=== PATIENT | female | born 1950 | race Caucasian/White ===

== ENCOUNTER → 2016-10-21 | Outpatient (REF) | payer MEDICARE, OTHER ==
[2016-10-21 12:10] LABS: MEAN CORPUSCULAR HGB CONC 32.6 g/dl (32.0-36.5); MEAN CORPUSCULAR VOLUME 88.7 fl (80.0-96.0); RED CELL DISTRIBUTION WIDTH 13.9 % (11.5-14.5); WHITE BLOOD COUNT 4.8 K/mm3 (4.0-10.0)
[2016-10-21 12:35] LABS: ALBUMIN 3.4 GM/DL (3.2-5.2); ALBUMIN/GLOBULIN RATIO 0.92 (1.00-1.93); BILIRUBIN,TOTAL 0.5 MG/DL (0.2-1.0); CALCIUM LEVEL 8.8 MG/DL (8.8-10.2); CREATININE FOR GFR 1.41 MG/DL (0.55-1.02); GLOMERULAR FILTRATION RATE 39.5 (>45); POTASSIUM SERUM 4.3 MEQ/L (3.5-5.1); TOTAL PROTEIN 7.1 GM/DL (6.4-8.2)
== END ==
LOC: M LABDRAW1 11:52
PROVIDERS: ATTEND Nurse Practitioner Family
DX: I10 Essential (primary) hypertension (principal); E78.00 Pure hypercholesterolemia, unspecified; K21.9 Gastro-esophageal reflux disease without esophagitis; E55.9 Vitamin D deficiency, unspecified

== ENCOUNTER → 2017-01-24 | Outpatient (REF) | payer MEDICARE, OTHER ==
[2017-01-24 10:08] LABS: MEAN CORPUSCULAR HEMOGLOBIN 29.9 pg (27.0-33.0); MEAN CORPUSCULAR HGB CONC 33.5 g/dl (32.0-36.5); MEAN CORPUSCULAR VOLUME 89.3 fl (80.0-96.0); RED CELL DISTRIBUTION WIDTH 14.6 % (11.5-14.5); WHITE BLOOD COUNT 6.3 K/mm3 (4.0-10.0)
[2017-01-24 10:36] LABS: ALBUMIN 3.3 GM/DL (3.2-5.2); ALBUMIN/GLOBULIN RATIO 0.85 (1.00-1.93); BILIRUBIN,TOTAL 0.5 MG/DL (0.2-1.0); CALCIUM LEVEL 8.9 MG/DL (8.8-10.2); CREATININE FOR GFR 1.25 MG/DL (0.55-1.02); GLOMERULAR FILTRATION RATE 45.4 (>45); TOTAL PROTEIN 7.2 GM/DL (6.4-8.2)
== END ==
LOC: M LABDRAW1 09:39
PROVIDERS: ATTEND Nurse Practitioner Family
DX: I10 Essential (primary) hypertension (principal); K21.9 Gastro-esophageal reflux disease without esophagitis; E78.00 Pure hypercholesterolemia, unspecified

== ENCOUNTER → 2017-04-26 | Outpatient (REF) | payer MEDICARE, OTHER ==
[2017-04-26 11:24] LABS: MEAN CORPUSCULAR HEMOGLOBIN 27.7 pg (27.0-33.0); MEAN CORPUSCULAR HGB CONC 31.8 g/dl (32.0-36.5); MEAN CORPUSCULAR VOLUME 87.1 fl (80.0-96.0); RED CELL DISTRIBUTION WIDTH 13.8 % (11.5-14.5); WHITE BLOOD COUNT 5.6 K/mm3 (4.0-10.0)
[2017-04-26 11:31] LABS: ALBUMIN 3.3 GM/DL (3.2-5.2); ALBUMIN/GLOBULIN RATIO 0.8 (1.00-1.93); BILIRUBIN,TOTAL 0.5 MG/DL (0.2-1.0); CALCIUM LEVEL 9.1 MG/DL (8.8-10.2); CREATININE FOR GFR 1.53 MG/DL (0.55-1.02); GLOMERULAR FILTRATION RATE 35.9 (>45); POTASSIUM SERUM 4.5 MEQ/L (3.5-5.1); TOTAL PROTEIN 7.4 GM/DL (6.4-8.2)
== END ==
LOC: M LABDRAW1 08:40
PROVIDERS: ATTEND Nurse Practitioner Family
DX: E78.5 Hyperlipidemia, unspecified (principal); I10 Essential (primary) hypertension; E55.9 Vitamin D deficiency, unspecified

== ENCOUNTER → 2017-07-11 | Outpatient (REF) | payer MEDICARE, OTHER ==
[2017-07-11 10:26] LABS: CALCIUM LEVEL 8.8 MG/DL (8.8-10.2); CREATININE FOR GFR 1.2 MG/DL (0.55-1.02); GLOMERULAR FILTRATION RATE 47.4 (>45); POTASSIUM SERUM 3.9 MEQ/L (3.5-5.1)
== END ==
LOC: M LABDRAW1 08:21
PROVIDERS: ATTEND Nurse Practitioner Family
DX: I10 Essential (primary) hypertension (principal)

== ENCOUNTER → 2017-09-30 | Outpatient (REF) | payer MEDICARE, OTHER ==
[2017-09-30 12:38] LABS: HEMATOCRIT 37.9 % (36.0-47.0); HEMOGLOBIN 11.5 g/dl (12.0-16.0); MEAN CORPUSCULAR HEMOGLOBIN 25.4 pg (27.0-33.0); MEAN CORPUSCULAR HGB CONC 30.3 g/dl (32.0-36.5); MEAN CORPUSCULAR VOLUME 83.7 fl (80.0-96.0); PLATELET COUNT, AUTOMATED 184 10^3/uL (150-450); RED BLOOD COUNT 4.53 10^6/uL (4.00-5.40); RED CELL DISTRIBUTION WIDTH 16.7 % (11.5-14.5); WHITE BLOOD COUNT 5.3 10^3/uL (4.0-10.0)
[2017-09-30 12:44] LABS: ALBUMIN 3.1 GM/DL (3.2-5.2); ALBUMIN/GLOBULIN RATIO 0.76 (1.00-1.93); ALKALINE PHOSPHATASE 78 U/L (45-117); ALT/SGPT 16 U/L (12-78); ANION GAP 7 MEQ/L (8-16); AST/SGOT 14 U/L (7-37); BILIRUBIN,TOTAL 0.5 MG/DL (0.2-1.0); BLOOD UREA NITROGEN 35 MG/DL (7-18); CALCIUM LEVEL 9.1 MG/DL (8.8-10.2); CARBON DIOXIDE LEVEL 28 MEQ/L (21-32); CHLORIDE LEVEL 106 MEQ/L (98-107); CHOLESTEROL LEVEL 170 MG/DL (<200); CHOLESTEROL RISK RATIO 3.695 (<5); CPK CREATINE PHOSPHOKINASE 84 U/L (26-192); CREATININE FOR GFR 1.51 MG/DL (0.55-1.30); GLOMERULAR FILTRATION RATE 36.4 (>45); GLUCOSE, FASTING 94 MG/DL (70-100); HDL CHOLESTEROL 46 MG/DL (>40); NON-HDL-C 124 MG/DL; POTASSIUM SERUM 4.4 MEQ/L (3.5-5.1); SODIUM LEVEL 141 MEQ/L (136-145); TOTAL PROTEIN 7.2 GM/DL (6.4-8.2); TRIGLYCERIDES LEVEL 190 MG/DL (<150)
== END ==
LOC: M LABDRAW1 07:58
DX: E78.00 Pure hypercholesterolemia, unspecified (principal); I10 Essential (primary) hypertension
CPT/HCPCS: 82550

== ENCOUNTER → 2017-12-29 | Outpatient (REF) | payer MEDICARE, OTHER ==
[2017-12-29 12:28] LABS: HEMATOCRIT 36.6 % (36.0-47.0); HEMOGLOBIN 11.2 g/dl (12.0-15.5); MEAN CORPUSCULAR HEMOGLOBIN 26.4 pg (27.0-33.0); MEAN CORPUSCULAR HGB CONC 30.6 g/dl (32.0-36.5); MEAN CORPUSCULAR VOLUME 86.3 fl (80.0-96.0); PLATELET COUNT, AUTOMATED 178 10^3/uL (150-450); RED BLOOD COUNT 4.24 10^6/uL (4.00-5.40); RED CELL DISTRIBUTION WIDTH 14.3 % (11.5-14.5); WHITE BLOOD COUNT 5.3 10^3/uL (4.0-10.0)
[2017-12-29 12:58] LABS: ALBUMIN 3.3 GM/DL (3.2-5.2); ALKALINE PHOSPHATASE 69 U/L (45-117); ALT/SGPT 18 U/L (12-78); ANION GAP 6 MEQ/L (8-16); AST/SGOT 15 U/L (7-37); BILIRUBIN,TOTAL 0.5 MG/DL (0.2-1.0); BLOOD UREA NITROGEN 35 MG/DL (7-18); CALCIUM LEVEL 9.2 MG/DL (8.8-10.2); CARBON DIOXIDE LEVEL 29 MEQ/L (21-32); CHLORIDE LEVEL 107 MEQ/L (98-107); CHOLESTEROL LEVEL 178 MG/DL (<200); CHOLESTEROL RISK RATIO 4.045 (<5); CPK CREATINE PHOSPHOKINASE 82 U/L (26-192); GLUCOSE, FASTING 97 MG/DL (70-100); HDL CHOLESTEROL 44 MG/DL (>40); NON-HDL-C 134 MG/DL; POTASSIUM SERUM 4.2 MEQ/L (3.5-5.1); SODIUM LEVEL 142 MEQ/L (136-145); TOTAL PROTEIN 7.4 GM/DL (6.4-8.2); TRIGLYCERIDES LEVEL 195 MG/DL (<150)
== END ==
LOC: M LABDRAW1 11:42
DX: I10 Essential (primary) hypertension (principal); E78.00 Pure hypercholesterolemia, unspecified
CPT/HCPCS: 82550

== ENCOUNTER → 2018-04-05 | Outpatient (REF) | payer MEDICARE, OTHER ==
[2018-04-05 12:55] LABS: HEMATOCRIT 37.7 % (36.0-47.0); HEMOGLOBIN 11.3 g/dl (12.0-15.5); MEAN CORPUSCULAR HEMOGLOBIN 25.2 pg (27.0-33.0); MEAN CORPUSCULAR VOLUME 84.2 fl (80.0-96.0); PLATELET COUNT, AUTOMATED 177 10^3/uL (150-450); RED BLOOD COUNT 4.48 10^6/uL (4.00-5.40); RED CELL DISTRIBUTION WIDTH 15.9 % (11.5-14.5); WHITE BLOOD COUNT 5.2 10^3/uL (4.0-10.0)
[2018-04-05 13:29] LABS: ALBUMIN 3.2 GM/DL (3.2-5.2); ALBUMIN/GLOBULIN RATIO 0.76 (1.00-1.93); ALKALINE PHOSPHATASE 73 U/L (45-117); ALT/SGPT 17 U/L (12-78); ANION GAP 9 MEQ/L (8-16); AST/SGOT 13 U/L (7-37); BILIRUBIN,TOTAL 0.4 MG/DL (0.2-1.0); BLOOD UREA NITROGEN 29 MG/DL (7-18); CALCIUM LEVEL 8.8 MG/DL (8.8-10.2); CARBON DIOXIDE LEVEL 28 MEQ/L (21-32); CHLORIDE LEVEL 105 MEQ/L (98-107); CHOLESTEROL LEVEL 171 MG/DL (<200); CPK CREATINE PHOSPHOKINASE 93 U/L (26-192); CREATININE FOR GFR 1.57 MG/DL (0.55-1.30); GLOMERULAR FILTRATION RATE 34.8 (>45); GLUCOSE, FASTING 101 MG/DL (70-100); HDL CHOLESTEROL 50 MG/DL (>40); LDL CHOLESTEROL 79.4 MG/DL (<100); NON-HDL-C 121 MG/DL; POTASSIUM SERUM 4.1 MEQ/L (3.5-5.1); SODIUM LEVEL 142 MEQ/L (136-145); TOTAL PROTEIN 7.4 GM/DL (6.4-8.2); TRIGLYCERIDES LEVEL 208 MG/DL (<150)
== END ==
LOC: M LABDRAW1 12:07
DX: I10 Essential (primary) hypertension (principal)
CPT/HCPCS: 82550

== ENCOUNTER → 2018-07-13 | Outpatient (REF) | payer MEDICARE, OTHER ==
[2018-07-13 12:50] LABS: HEMATOCRIT 38.3 % (36.0-47.0); HEMOGLOBIN 11.4 g/dl (12.0-15.5); MEAN CORPUSCULAR HEMOGLOBIN 25.5 pg (27.0-33.0); MEAN CORPUSCULAR HGB CONC 29.8 g/dl (32.0-36.5); MEAN CORPUSCULAR VOLUME 85.7 fl (80.0-96.0); PLATELET COUNT, AUTOMATED 188 10^3/uL (150-450); RED BLOOD COUNT 4.47 10^6/uL (4.00-5.40); RED CELL DISTRIBUTION WIDTH 15.3 % (11.5-14.5); WHITE BLOOD COUNT 5.7 10^3/uL (4.0-10.0)
[2018-07-13 13:13] LABS: ALBUMIN 3.2 GM/DL (3.2-5.2); ALKALINE PHOSPHATASE 75 U/L (45-117); ALT/SGPT 16 U/L (12-78); ANION GAP 9 MEQ/L (8-16); AST/SGOT 13 U/L (7-37); BILIRUBIN,TOTAL 0.5 MG/DL (0.2-1.0); BLOOD UREA NITROGEN 29 MG/DL (7-18); CALCIUM LEVEL 8.7 MG/DL (8.8-10.2); CARBON DIOXIDE LEVEL 26 MEQ/L (21-32); CHLORIDE LEVEL 106 MEQ/L (98-107); CHOLESTEROL LEVEL 180 MG/DL (<200); CPK CREATINE PHOSPHOKINASE 69 U/L (26-192); CREATININE FOR GFR 1.54 MG/DL (0.55-1.30); GLOMERULAR FILTRATION RATE 35.5 (>39); GLUCOSE, FASTING 92 MG/DL (70-100); HDL CHOLESTEROL 45 MG/DL (>40); LDL CHOLESTEROL 100 MG/DL (<100); NON-HDL-C 135 MG/DL; POTASSIUM SERUM 4.4 MEQ/L (3.5-5.1); SODIUM LEVEL 141 MEQ/L (136-145); TOTAL 25(OH) VITAMIN D 89.8 NG/ML (30.0-100.0); TOTAL PROTEIN 7.2 GM/DL (6.4-8.2); TRIGLYCERIDES LEVEL 176 MG/DL (<150)
== END ==
LOC: M LABDRAW1 12:03
DX: I10 Essential (primary) hypertension (principal); E78.00 Pure hypercholesterolemia, unspecified; E55.9 Vitamin D deficiency, unspecified
CPT/HCPCS: 82550

== ENCOUNTER → 2018-08-16 | Outpatient (CLI) | payer MEDICARE, OTHER ==
--- NOTE | 2018-08-16 11:04 | REP ---
RIGHT FOOT, FOUR VIEWS: HISTORY: Pain. There is no acute fracture or dislocation. 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 There is narrowing of the 1st metatarsophalangeal joint space. The remaining joint spaces are normal in appearance. An osteophyte is present on the inferior calcaneus. IMPRESSION: Degenerative change, as described above. Electronically Signed by Rajesh Duque MD 08/16/2018 11:06 A
[2018-08-16 12:30] LABS: BASO % 0.3 % (0.0-1.0); EOS # 0.1 10^3/uL (0.0-0.50); EOS % 0.7 % (0.0-3.0); HEMATOCRIT 39.4 % (36.0-47.0); HEMOGLOBIN 11.9 g/dl (12.0-15.5); LYMPH # 2.1 10^3/uL (1.5-4.5); LYMPH % 24.4 % (24.0-44.0); MEAN CORPUSCULAR HEMOGLOBIN 25.5 pg (27.0-33.0); MEAN CORPUSCULAR HGB CONC 30.2 g/dl (32.0-36.5); MEAN CORPUSCULAR VOLUME 84.4 fl (80.0-96.0); MONO # 0.6 10^3/uL (0.0-0.8); MONO % 6.8 % (0.0-5.0); NEUTROPHILS # 5.9 10^3/uL (1.8-7.7); NEUTROPHILS % 67.5 % (36.0-66.0); PLATELET COUNT, AUTOMATED 217 10^3/uL (150-450); RED BLOOD COUNT 4.67 10^6/uL (4.00-5.40); WHITE BLOOD COUNT 8.7 10^3/uL (4.0-10.0)
== END ==
LOC: M WUC 10:30
PROVIDERS: ATTEND Physician Assistant
DX: M25.774 Osteophyte, right foot (principal); M79.671 Pain in right foot

== ENCOUNTER → 2018-09-01 | Outpatient (CLI) | payer MEDICARE, OTHER ==
--- NOTE | 2018-09-01 12:12 | REP ---
RIGHT WRIST, FOUR VIEWS: HISTORY: Pain. There is no acute fracture or dislocation. There is narrowing of the first carpometacarpal joint space with associated osteophyte formation. Small cysts are present in the navicular , lunate and capitate. IMPRESSION: Degenerative change as described above. Electronically Signed by Rajesh Duque MD 09/01/2018 12:13 P
[2018-09-01 17:04] LABS: BASO # 0.1 10^3/uL (0.0-0.2); BASO % 0.5 % (0.0-1.0); EOS % 0.3 % (0.0-3.0); HEMATOCRIT 38.2 % (36.0-47.0); HEMOGLOBIN 11.6 g/dl (12.0-15.5); LYMPH # 2.3 10^3/uL (1.5-4.5); LYMPH % 16.6 % (24.0-44.0); MEAN CORPUSCULAR HEMOGLOBIN 25.2 pg (27.0-33.0); MEAN CORPUSCULAR HGB CONC 30.4 g/dl (32.0-36.5); MEAN CORPUSCULAR VOLUME 82.9 fl (80.0-96.0); MONO # 0.7 10^3/uL (0.0-0.8); MONO % 5.1 % (0.0-5.0); NEUTROPHILS # 10.5 10^3/uL (1.8-7.7); NEUTROPHILS % 77.1 % (36.0-66.0); PLATELET COUNT, AUTOMATED 264 10^3/uL (150-450); RED BLOOD COUNT 4.61 10^6/uL (4.00-5.40); WHITE BLOOD COUNT 13.6 10^3/uL (4.0-10.0)
== END ==
LOC: M WUC 11:25
PROVIDERS: ATTEND Physician Assistant
DX: M25.531 Pain in right wrist (principal)

== ENCOUNTER → 2018-10-13 | Outpatient (REF) | payer MEDICARE, OTHER ==
[2018-10-13 12:14] LABS: CALCIUM LEVEL 8.9 MG/DL (8.8-10.2); CREATININE FOR GFR 1.41 MG/DL (0.55-1.30); GLOMERULAR FILTRATION RATE 39.3 (>39); POTASSIUM SERUM 3.7 MEQ/L (3.5-5.1)
== END ==
LOC: M LABDRAW1 09:33
PROVIDERS: ATTEND Nurse Practitioner Family
DX: I10 Essential (primary) hypertension (principal)

== ENCOUNTER → 2019-01-12 | Outpatient (REF) | payer MEDICARE, OTHER ==
[2019-01-12 13:39] LABS: HEMATOCRIT 35.3 % (36.0-47.0); HEMOGLOBIN 11.2 g/dl (12.0-15.5); MEAN CORPUSCULAR HEMOGLOBIN 26.7 pg (27.0-33.0); MEAN CORPUSCULAR HGB CONC 31.7 g/dl (32.0-36.5); MEAN CORPUSCULAR VOLUME 84.2 fl (80.0-96.0); PLATELET COUNT, AUTOMATED 212 10^3/uL (150-450); RED BLOOD COUNT 4.19 10^6/uL (4.00-5.40); WHITE BLOOD COUNT 5.6 10^3/uL (4.0-10.0)
[2019-01-12 13:47] LABS: ALBUMIN 3.4 GM/DL (3.2-5.2); BILIRUBIN,TOTAL 0.4 MG/DL (0.2-1.0); CALCIUM LEVEL 9.4 MG/DL (8.8-10.2); CHOLESTEROL RISK RATIO 3.471 (<5); CREATININE FOR GFR 1.42 MG/DL (0.55-1.30); GLOMERULAR FILTRATION RATE 38.9 (>39); POTASSIUM SERUM 4.5 MEQ/L (3.5-5.1); TOTAL PROTEIN 6.8 GM/DL (6.4-8.2)
[2019-01-12 14:02] LABS: TOTAL 25(OH) VITAMIN D 78.2 NG/ML (30.0-100.0)
== END ==
LOC: M LABDRAW1 11:57
PROVIDERS: ATTEND Nurse Practitioner Family
DX: I10 Essential (primary) hypertension (principal); E78.5 Hyperlipidemia, unspecified; E55.9 Vitamin D deficiency, unspecified

== ENCOUNTER → 2019-02-21 | Outpatient (REF) | payer MEDICARE, OTHER ==
[~2019-02-21] MED LIST: ATEN25TA PO; ATOR1TAB21 PO; FLUTISP; LISI20TA PO; OYST500T12 PO; PANT40TA3 PO; SERT-138 PO; VITA25TA3 PO; ZYLO300T6 PO
[2019-02-21 15:47] LABS: CALCIUM LEVEL 9.3 MG/DL (8.8-10.2); CREATININE FOR GFR 1.49 MG/DL (0.55-1.30); GLOMERULAR FILTRATION RATE 36.8 (>39); POTASSIUM SERUM 3.9 MEQ/L (3.5-5.1)
[2019-02-21 15:57] LABS: HEMATOCRIT 34.5 % (36.0-47.0); HEMOGLOBIN 10.6 g/dl (12.0-15.5); MEAN CORPUSCULAR HEMOGLOBIN 25.4 pg (27.0-33.0); MEAN CORPUSCULAR HGB CONC 30.7 g/dl (32.0-36.5); MEAN CORPUSCULAR VOLUME 82.5 fl (80.0-96.0); PLATELET COUNT, AUTOMATED 216 10^3/uL (150-450); RED BLOOD COUNT 4.18 10^6/uL (4.00-5.40); WHITE BLOOD COUNT 6.1 10^3/uL (4.0-10.0)
== END ==
LOC: M LABDRAW1 11:54
PROVIDERS: ATTEND Nurse Practitioner Family
DX: I10 Essential (primary) hypertension (principal)

== ENCOUNTER 2019-02-28 09:48 | Day surgery (SDC) | payer MEDICARE, OTHER ==
[~2019-02-28] VITALS: Ht 165.1 cm; Wt 122.4 kg
[~2019-02-28 09:48] MED LIST changes: +ACETAMINOPHEN 325 MG TAB PO PRN; +BSS with VANC/TOB/EPI for EYE CASES IR ONE; +CYCLOPENTOLATE 2% OPHTH SOLN 2ML BTL OD ONE; +HEALON DUET PRO(HEALON 10MG/ML 0.55ML & HEALON ENDOCOAT 30MG/ML 0.85ML) As Ordered ONE; +LIDOCAINE 1% SDV 5 ML VIAL As Ordered ONE; +LIDOCAINE 3.5 % 1ML OPHTH TOPICAL GEL OU ONE; -LISI20TA PO; +LISI20TA19 PO; +MIDAZOLAM INJ 2 MG/2 ML VIAL (J2250) As Ordered ONE; +MOXIFLOXACIN IN BSS 0.25MG/0.25ML INTRACAMERAL INJ (OR EYE ONLY)(J2280) As Ordered ONE; +OFLOXACIN 0.3 % (OCUFLOX) OPTH SOL 5ML OD ONE; +PHENYLEPHRINE 2.5% OPHTH SOL 2ML OD ONE; +PHENYLEPHRINE HCL 10 % OPHTH. SOL 5ML OD PRN; +POVIDONE-IODINE 5% OPHTH PREP SOL 30ML As Ordered ONE; +TRIAMCINOLONE PRES FR 40 MG/ML 1ML(TRIESENCE)(OR EYE ONLY)(J3300 PER 1MG) As Ordered ONE; +TROPICAMIDE 1% OPHTH SOLN 2ML OD ONE
[2019-02-28] MEDS ORDERED: fentaNYL 100 MCG/2 ML INJECTION (J3010) As Ordered ONE (11:16)
[2019-02-28] MEDS ORDERED: ACETYLCHOLINE OPHTH SOLN 1% 2ML (MIOCHOL-E) As Ordered ONE (11:25)
[2019-02-28] MEDS ORDERED: AcetaZOLAMIDE 500 MG ER CAP As Ordered ONE (12:00)
[2019-02-28 12:10] VITALS: BP 125/62
[2019-02-28] MEDS ORDERED: AcetaZOLAMIDE 500 MG ER CAP PO ONE (13:00)
[2019-02-28] MEDS ORDERED: TRIMETHOBENZAMIDE 300 MG CAP PO PRN (13:00)
--- NOTE | 2019-03-02 16:25 | RO ---
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 POSTPROCEDURE DIAGNOSIS: Miosis and cataract right eye. PROCEDURE: Phacoemulsification with intraocular lens implantation with the help of Optiwave Refractive Analysis (ORA) and 7 mm Malyugin ring. Intraocular lens power chosen was AU00T0, 21.5 diopter. SURGEON: Dr. Tara Genao OUTSIDE ENERGY SALES REPRESENTATIVES: None. ANESTHESIA: COMPLICATIONS: None. DESCRIPTION OF PROCEDURE: The patient was brought to the operating room, laid in supine position. The eye was prepped and draped in a sterile fashion for ophthalmic surgery, following which a lid speculum was placed. Sideport incision was made and EndoCoat was injected into the anterior chamber following which Healon was placed into the anterior chamber after the temporal clear corneal incision was made. Capsulorrhexis was done after a Malyugin ring 7 mm was placed to dilate the pupil prior to capsulorrhexis. This was because of miosis. Phacoemulsification was done in a [id number] method within the capsular bag, followed by aspiration of the cortical material. Healon was then placed in the capsular bag, and the anterior chamber intraocular pressure was checked. It was noted to be adequate, following which multiple ORA calculations were reviewed. Intraocular lens power of AU00T0, 21.5 diopter was then chosen and inserted. Excess viscoelastic was removed, the wound was hydrated, intracameral moxifloxacin and sub-Tenon Triamcinolone injections were given, and the patient was returned to the recovery room, after removing the lid speculum, in stable condition.
== END 2019-02-28 12:26 | disposition home or self-care (01) ==
LOC: M SDC 09:48
PROVIDERS: ATTEND Ophthalmology
DX: H25.9 Unspecified age-related cataract (principal); H57.03 Miosis; I10 Essential (primary) hypertension; E78.5 Hyperlipidemia, unspecified; K21.9 Gastro-esophageal reflux disease without esophagitis; F41.9 Anxiety disorder, unspecified; F32.9 Major depressive disorder, single episode, unspecified; Z79.899 Other long term (current) drug therapy
CPT/HCPCS: 66982; 92015; J2250; J2280; J3010; J3300; V2632

== ENCOUNTER 2019-03-07 09:41 | Day surgery (SDC) | payer MEDICARE, OTHER ==
[~2019-03-07] VITALS: Ht 168.9 cm; Wt 121.2 kg
[~2019-03-07 09:41] MED LIST changes: -CYCLOPENTOLATE 2% OPHTH SOLN 2ML BTL OD ONE; +CYCLOPENTOLATE 2% OPHTH SOLN 2ML BTL OS ONE; +LIDOCAINE 1% MDV 20ML VIAL SQ PRN; +LISI20TA PO; -LISI20TA19 PO; -MIDAZOLAM INJ 2 MG/2 ML VIAL (J2250) As Ordered ONE; -OFLOXACIN 0.3 % (OCUFLOX) OPTH SOL 5ML OD ONE; +OFLOXACIN 0.3 % (OCUFLOX) OPTH SOL 5ML OS ONE; -PHENYLEPHRINE 2.5% OPHTH SOL 2ML OD ONE; +PHENYLEPHRINE 2.5% OPHTH SOL 2ML OS ONE; -PHENYLEPHRINE HCL 10 % OPHTH. SOL 5ML OD PRN; +PHENYLEPHRINE HCL 10 % OPHTH. SOL 5ML OS PRN; -TROPICAMIDE 1% OPHTH SOLN 2ML OD ONE; +TROPICAMIDE 1% OPHTH SOLN 2ML OS ONE
[2019-03-07] MEDS ORDERED: MIDAZOLAM INJ 2 MG/2 ML VIAL (J2250) As Ordered ONE (10:46)
[2019-03-07] MEDS ORDERED: fentaNYL 100 MCG/2 ML INJECTION (J3010) As Ordered ONE (10:47)
[2019-03-07] MEDS ORDERED: HEALON DUET PRO(HEALON 10MG/ML 0.55ML & HEALON ENDOCOAT 30MG/ML 0.85ML) As Ordered ONE (11:19)
[2019-03-07] MEDS ORDERED: AcetaZOLAMIDE 500 MG ER CAP PO ONE (11:45)
[2019-03-07] MEDS ORDERED: TRIMETHOBENZAMIDE 300 MG CAP PO PRN (11:45)
[2019-03-07] MEDS ORDERED: ONDANSETRON 4MG/2ML VIAL (J2405) IV PRN (11:45)
[2019-03-07 11:55] VITALS: BP 96/52
--- NOTE | 2019-03-08 12:52 | RO ---
DATE OF PROCEDURE: 03/07/2019 PREPROCEDURE DIAGNOSIS: Cataract of left eye. POSTPROCEDURE DIAGNOSIS: Cataract of left eye. PROCEDURE: Femtosecond laser and phacoemulsification of the intraocular lens with lens implantation with the help of the Optiwave refractory analysis (ORA) left eye. Intraocular lens power used was AU00T0, 21 diopter. SURGEON: Tara Genao MD POUCH MAKING MACHINE OPERATOR: None. ANESTHESIA: Local IV standby. FINDINGS: Cataract of left eye. COMPLICATIONS: None. DESCRIPTION OF PROCEDURE: The patient was brought to the operating room and laid in supine position. A lid speculum was placed, and patient was brought under the femtosecond laser. After the satisfactory placement of the patient interface, primary incision, secondary incision, and arcuate incisions with lens fragmentation was done without any complication per plan. The patients interface was then removed and lid speculum removed. Patient was placed under the microscope. The eye was prepped and draped in a sterile fashion for ophthalmic surgery. Lid speculum was placed. The secondary incision was opened, and EndoCoat was injected into the anterior chamber. The temporal clear corneal incision was then opened and capsulorrhexis removed, followed by hydrodissection. This was followed by phacoemulsification of the lens within the capsular bag. Cortical material was then aspirated, and Healon was injected into the capsular bag. Intraocular lens was then placed. Excess Healon was aspirated. Wound was hydrated. The lid speculum was removed, and patient was returned to the recovery room in stable condition. ADDENDUM: After cortical clean up, Healon was placed in the capsular bag anterior chamber. Intraocular pressure was checked. This was followed by multiple ORA calculations and IOL power was chosen and inserted. At the end of the case, tamsulosin and sub-Tenon and moxifloxacin intracameral was given.
== END 2019-03-07 12:05 | disposition home or self-care (01) ==
LOC: M SDC 09:41
PROVIDERS: ATTEND Ophthalmology
DX: H25.9 Unspecified age-related cataract (principal); I10 Essential (primary) hypertension; E78.5 Hyperlipidemia, unspecified; K21.9 Gastro-esophageal reflux disease without esophagitis; F32.9 Major depressive disorder, single episode, unspecified; F41.9 Anxiety disorder, unspecified; Z79.899 Other long term (current) drug therapy
CPT/HCPCS: 66984; 92015; J2250; J2280; J3010; J3300; V2632

== ENCOUNTER → 2023-06-29 | Outpatient (CLI) | payer MEDICARE, OTHER ==
[~2023-06-29] MED LIST changes: -ACETAMINOPHEN 325 MG TAB PO PRN; -BSS with VANC/TOB/EPI for EYE CASES IR ONE; -CYCLOPENTOLATE 2% OPHTH SOLN 2ML BTL OS ONE; +FLUT50SP17; -FLUTISP; -HEALON DUET PRO(HEALON 10MG/ML 0.55ML & HEALON ENDOCOAT 30MG/ML 0.85ML) As Ordered ONE; -LIDOCAINE 1% MDV 20ML VIAL SQ PRN; -LIDOCAINE 1% SDV 5 ML VIAL As Ordered ONE; -LIDOCAINE 3.5 % 1ML OPHTH TOPICAL GEL OU ONE; -LISI20TA PO; +LISI20TA35 PO; -MOXIFLOXACIN IN BSS 0.25MG/0.25ML INTRACAMERAL INJ (OR EYE ONLY)(J2280) As Ordered ONE; -OFLOXACIN 0.3 % (OCUFLOX) OPTH SOL 5ML OS ONE; +PANT40TA29 PO; -PANT40TA3 PO; -PHENYLEPHRINE 2.5% OPHTH SOL 2ML OS ONE; -PHENYLEPHRINE HCL 10 % OPHTH. SOL 5ML OS PRN; -POVIDONE-IODINE 5% OPHTH PREP SOL 30ML As Ordered ONE; -TRIAMCINOLONE PRES FR 40 MG/ML 1ML(TRIESENCE)(OR EYE ONLY)(J3300 PER 1MG) As Ordered ONE; -TROPICAMIDE 1% OPHTH SOLN 2ML OS ONE
== END ==
LOC: M WUC 15:21
PROVIDERS: ATTEND Nurse Practitioner Family
DX: M25.532 Pain in left wrist (principal); M19.041 Primary osteoarthritis, right hand

== ENCOUNTER 2024-05-04 06:31 | Day surgery (SDC) | payer MEDICARE, OTHER ==
[~2024-05-04] VITALS: Ht 167.6 cm; Wt 114.3 kg
[~2024-05-04 06:31] MED LIST changes: +ALLO300T2 PO; +ATOR40TA75 PO; +BUSP10TA PO; +CALC-175 PO; +ERGO500029 PO; -FLUT50SP17; +FLUTISP; +KP F1200 PO; +LABE20TAB PO; +LORA-1041 PO; +VALS1TAB67 PO; +ZOLO100T PO
[2024-05-04] MEDS ORDERED: fentaNYL 100 MCG/2 ML INJECTION As Ordered ONE (07:22)
[2024-05-04] MEDS: LIDOCAINE 3.5 % 1ML OPHTH TOPICAL GEL OU ONE (08:36)
[2024-05-04] MEDS ORDERED: propofoL 200 MG/20 ML VIAL As Ordered ONE (09:32)
[2024-05-04] MEDS: POVIDONE-IODINE 5% OPHTH PREP SOL 30ML As Ordered ONE (09:35)
[2024-05-04] MEDS: LIDOCAINE 2% W/EPINEPHRINE 20ML VIAL **PRES FREE As Ordered ONE (09:44)
[2024-05-04] MEDS: TOBRADEX OPHTH OINT 3.5 GM As Ordered ONE (10:16)
[2024-05-04 10:22] VITALS: BP 178/83; TEMP 97.1; O2SAT 96
== END 2024-05-04 11:07 | disposition home or self-care (01) ==
LOC: M SDC 06:31
PROVIDERS: ATTEND Ophthalmology
DX: H02.403 Unspecified ptosis of bilateral eyelids (principal); I10 Essential (primary) hypertension; E78.5 Hyperlipidemia, unspecified; M10.9 Gout, unspecified; F41.9 Anxiety disorder, unspecified; F32.A Depression, unspecified; Z79.899 Other long term (current) drug therapy; Z87.891 Personal history of nicotine dependence
CPT/HCPCS: 15823; 88300; J3010

== ENCOUNTER 2025-02-14 13:27 | Emergency (ER) | payer MEDICARE, OTHER ==
[~2025-02-14] VITALS: Ht 167.6 cm; Wt 112.4 kg
[2025-02-14] MEDS ORDERED: FERR325T3 PO (14:00)
[2025-02-14] MEDS ORDERED: DONE10TA90 (14:00)
[2025-02-14 16:38] VITALS: BP 146/78; TEMP 96.3; O2SAT 95
== END 2025-02-14 16:46 | disposition home or self-care (01) ==
LOC: M ED 13:27
DX: S06.0X0A Concussion without loss of consciousness, initial encounter (principal); W01.198A Fall on same level from slipping, tripping and stumbling with subsequent striking against other object, initial encounter; M50.322 Other cervical disc degeneration at C5-C6 level; M17.11 Unilateral primary osteoarthritis, right knee; F41.9 Anxiety disorder, unspecified; I10 Essential (primary) hypertension; Y92.009 Unspecified place in unspecified non-institutional (private) residence as the place of occurrence of the external cause; Y93.89 Activity, other specified; Y99.9 Unspecified external cause status; Z79.02 Long term (current) use of antithrombotics/antiplatelets; Z79.899 Other long term (current) drug therapy